=== PATIENT | male | born 1955 | race Caucasian/White ===

== ENCOUNTER → 2019-05-10 | Emergency (ER) | payer OTHER ==
[~2019-05-10] VITALS: Ht 180.3 cm; Wt 99.8 kg
[~2019-05-10] MED LIST: ATEN-60; IBUP1POW8; MORPHINE SULF INJ 2 MG/ML SYRINGE 1ML IV ONE; MORPHINE SULFATE 4 MG/ML SYR/VIAL IV ONE; MULTLIQ36; ONDANSETRON HCL 4 MG/2 ML VIAL IV ONE
[2019-05-10 21:45] LABS: INR 1.02 (0.9-1.15); Partial Thromboplastin Time 25.1 sec (23.64-32.05)
[2019-05-10 21:47] LABS: Albumin 3.6 g/dL (3.4-5.0); Anion Gap 4 (5-15); Blood Urea Nitrogen 16 mg/dL (7-18); Calcium 8.8 mg/dL (8.5-10.1); Carbon Dioxide 31 mmol/L (21-32); Chloride 105 mmol/L (98-107); Glucose 182 mg/dL (74-106); Magnesium 2.2 mg/dL (1.6-2.6); Potassium 3.4 mmol/L (3.5-5.1); Sodium 140 mmol/L (136-145)
[2019-05-10 21:53] LABS: Alanine Aminotransferase 33 U/L (16-61); Alkaline Phosphatase 68 U/L (45-117); Aspartate Aminotransferase 26 U/L (15-37); BUN/Creatinine Ratio 15.7; Bilirubin, Total 0.3 mg/dL (0.2-1.0); GFR African American 95 mL/min; GFR Non-African American 78 mL/min; Total Protein 7.9 g/dL (6.4-8.2)
[2019-05-10 21:57] LABS: Basophils # (auto) 0.1 10 ^3/uL (0-0.2); Basophils % (auto) 0.5 % (0.0-2.0); Eosinophils # (auto) 0.2 10 ^3/uL (0-0.8); Eosinophils % (auto) 1.3 % (0.0-7.0); Hematocrit 44.7 % (41.0-53.0); Hemoglobin 15.6 g/dL (13.5-17.5); Lymphocytes % (auto) 20.1 % (10.0-50.0); Mean Corpuscular Hemoglobin 32.1 pg (28.0-32.0); Mean Corpuscular Hgb Conc. 34.9 g/dL (32.0-36.0); Mean Corpuscular Volume 91.9 fL (80.0-100.0); Monocytes # (auto) 1.2 10 ^3/uL (0-1.3); Monocytes % (auto) 7.7 % (0.0-12.0); Neutrophils # (auto) 10.5 10 ^3/uL (1.6-8.6); Neutrophils % (auto) 70.4 % (37.0-80.0); Platelet Count (auto) 273 10^3/uL (140-450); Red Blood Cells 4.87 10^6/uL (4.5-5.90); Red Cell Distribution Width 13.2 % (11.8-14.3); White Blood Cell 14.9 10^3/uL (4.4-10.8)
[2019-05-10 22:04] LABS: Urine WBC None Seen /hpf (0 - 3)
[2019-05-10 22:21] LABS: Urine Bacteria NONE SEEN /hpf (None Seen); Urine Blood Negative /uL (Negative); Urine Specific Gravity 1.015 (1.001-1.035)
[2019-05-11 02:00] VITALS: BP 113/64
== END | disposition home or self-care (01) ==
LOC: EDUNIT# 20:38 → ER 20:48 → EDBD 20:48
DX: K80.10 Calculus of gallbladder with chronic cholecystitis without obstruction (principal); K21.9 Gastro-esophageal reflux disease without esophagitis
CPT/HCPCS: 36415; 71045; 74176; 80053; 81001; 83735; 83880; 84443; 84484; 85025; 85379; 85610; 85730; 93005; 96374; 96375; 99285; J2270; J2405